=== PATIENT | male | born 1945 | race Caucasian/White ===

== ENCOUNTER 2016-05-24 06:10 | Day surgery (SDC) | payer OTHER ==
[2016-05-12 16:19] VITALS: BMI 27.3
[2016-05-24] MEDS ORDERED: KETOROLAC TROMETHAMINE 30 MG/1 ML VIAL ONE (07:37)
[2016-05-24] MEDS ORDERED: LIDOCAINE HCL/PF 2% SDV 5ML VIAL ONE (07:37)
[2016-05-24] MEDS ORDERED: MIDAZOLAM HCL 2 MG/2 ML SINGLE DOSE VIAL ONE (07:38)
[2016-05-24] MEDS ORDERED: PROPOFOL 20 ML ONE ×2 (07:38→07:39)
--- NOTE | 2016-05-24 07:45 | OP ---
Operative Note - Note: Operative Date: 05/24/16 Pre-Operative Diagnosis: LLP kidney stone Operation: ESWL Findings: 7mm LLP stone Post-Operative Diagnosis: Same as Pre-op Surgeon: Jeb Green Anesthesia: General Estimated Blood Loss (mls): 0 Operative Report Dictated: Yes
[2016-05-24] MEDS ORDERED: oxyCODONE HCL 5 MG TABLET PO PRN (07:46)
[2016-05-24] MEDS ORDERED: ONDANSETRON 4 MG/2 ML VIAL IVPUSH PRN (07:58)
[2016-05-24] MEDS ORDERED: LACTATED RINGERS SOLUTION 1,000 ML IV SCH (08:00)
[2016-05-24] MEDS ORDERED: DEXTROSE 5%-0.45% SALINE 1,000 ML IV SCH (08:00)
[2016-05-24 08:49] VITALS: TEMP 97.8
[2016-05-24 09:42] VITALS: BP 139/58; PULSE 59
--- NOTE | 2016-05-24 13:43 | OP ---
DATE OF OPERATION: 05/24/2016 PREOPERATIVE DIAGNOSIS: A 7-mm left lower pole kidney stone. POSTOPERATIVE DIAGNOSIS: A 7-mm left lower pole kidney stone. PROCEDURE: Extracorporeal shock wave lithotripsy. SURGEON: Keshawn Pichardo MD INDICATION: Patient is a 70-year-old male who was noted to have nephrolithiasis. The largest was a 7-mm stone in the lower lobe of left kidney. After reviewing treatment options, patient elected to undergo ESWL. Risks, benefits, and alternatives were discussed in the office in detail. DESCRIPTION OF PROCEDURE: After informed consent was obtained, patient taken to the OR, placed supine on the table. After cardiac monitoring as well as general anesthesia established, under active fluoroscopy and ultrasound, a 7-mm stone was seen in the lower pole of the left kidney; 2500 shocks were delivered under active ultrasound guidance. Post treatment, there appeared to be some fragmentation of the stone. Patient was then awoken from anesthesia and transferred to the recovery room in stable condition. There were no complications. Estimated blood loss was 0. KESHAWN PICHARDO M.D. [id number]
== END 2016-05-24 09:50 | disposition home or self-care (01) ==
LOC: JASU-SURG 06:10
PROVIDERS: ATTEND Urology
PROC: 0TF4XZZ Fragmentation in Left Kidney Pelvis, External Approach (ICD-10-PCS; principal; 2016-05-24 07:30)
DX: N20.0 Calculus of kidney (principal)
CPT/HCPCS: 94760